=== PATIENT | female | born 2000 | race Caucasian/White ===

== ENCOUNTER 2021-08-23 13:47 | Outpatient (REF) | payer OTHER, SELFPAY ==
--- NOTE | ~2021-08-23 | US_ITS ---
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 COMPARISON: Report left breast ultrasound 02/14/2021 ([facility], [place], [place]). TECHNIQUE: Ultrasound left breast is targeted to the retroareolar region. Grayscale imaging and color Doppler are performed without and with harmonics. FINDINGS: There is an oval solid circumscribed retroareolar mass measuring 2.2 x 1.4 x 2.1 cm. Long axis is parallel with the skin. There is some scattered internal color flow. Measurements on outside ultrasound report are similar, 2.3 x 1.1 x 1.9 cm. Results are discussed with the patient. Continued serial follow-up should be performed with ultrasound in 6 months and 18 months from today. If tissue confirmation is desired to confirm fibroadenoma, this could be performed under ultrasound guidance. US/US breast LT limited IMPRESSION: Oval circumscribed solid mass retroareolar left breast 2.2 cm, similar to outside ultrasound report 02/14/2021. ASSESSMENT: BI-RADS 3: Probably Benign RECOMMENDATION: Diagnostic left breast ultrasound in 6 months. This patient's information was entered into a reminder system with a target due date for their next breast imaging.
== END 2021-08-23 13:48 | disposition home or self-care (01) ==
LOC: HO.MAMMO 13:47
PROVIDERS: PCP Family Medicine; Visit Provider Family Medicine
DX: D24.2 Benign neoplasm of left breast (principal)
CPT/HCPCS: 76642